=== PATIENT | female | born 1935 | race Caucasian/White ===

== ENCOUNTER 2022-05-26 01:43 | Outpatient (CLI) | payer MEDICARE, SELFPAY ==
--- NOTE | 2022-05-26 | DI.MRI_ITS ---
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 TECHNIQUE: Multiplanar multisequence MRI of the brain was performed. . COMPARISON: No exams were available for comparison FINDINGS: VENTRICLES AND EXTRA AXIAL SPACES: Normal in size and morphology for the patient's age. HEMORRHAGE: No evidence of acute or old hemorrhage. CEREBRAL PARENCHYMA: No focus of restricted diffusion to suggest acute infarct. No space-occupying le kain identified. There is no evidence of old infarct. There are scattered small foci of high signal in the white matter consistent with sequela of chronic microvascular ischemia, not unusual for the p atient's age. There is ecgh-ig-tqaxriyu atrophy, also consistent with the patient's age. There is m ild ventricular asymmetry which is within normal limits of variation. MIDLINE SHIFT: None. BRAINSTEM/CEREBELLUM: Normal. VISUALIZED PARANASAL SINUSES/MASTOIDS: Clear. OTHER FINDINGS: Orbits are unremarkable. IMPRESSION: Atrophy and white matter changes of small vessel disease, not unusual for the patient's age.. No micah dence of mass, acute or old infarct. DATA REPOSITORY:
== END 2022-05-26 02:03 ==
PROVIDERS: Visit Provider Family Medicine
DX: R90.82 White matter disease, unspecified (principal); F03.90 Unspecified dementia, unspecified severity, without behavioral disturbance, psychotic disturbance, mood disturbance, and anxiety
CPT/HCPCS: 70551

== ENCOUNTER → 2022-07-01 12:57 | Outpatient (BNVA) | payer MEDICARE, SELFPAY | PROVIDERS: PCP Nurse Practitioner Family; Referring Provider Nurse Practitioner Family; Visit Provider Nurse Practitioner Adult Health | DX: R41.89 Other symptoms and signs involving cognitive functions and awareness (principal); E03.9 Hypothyroidism, unspecified | CPT/HCPCS: 99204 ==

== ENCOUNTER 2022-07-07 01:43 | Outpatient (CLI) | payer MEDICARE, SELFPAY ==
[2022-07-07 13:32] LABS: TSH 1.04 uIU/mL (0.36-3.74); Vitamin B12 289 pg/mL (193-986)
== END 2022-07-07 01:44 | disposition home or self-care (01) ==
LOC: LBO 01:43
PROVIDERS: PCP Nurse Practitioner Family; Visit Provider Nurse Practitioner Adult Health
DX: E03.9 Hypothyroidism, unspecified (principal); R41.9 Unspecified symptoms and signs involving cognitive functions and awareness; G62.9 Polyneuropathy, unspecified
CPT/HCPCS: 36415; 82607; 84443

== ENCOUNTER → 2022-08-18 09:36 | Outpatient (BNVA) | payer MEDICARE, SELFPAY | PROVIDERS: PCP Nurse Practitioner Family; Referring Provider Nurse Practitioner Family; Visit Provider Nurse Practitioner Adult Health | DX: F02.811 Dementia in other diseases classified elsewhere, unspecified severity, with agitation (principal); G30.9 Alzheimer's disease, unspecified | CPT/HCPCS: 99213; 99214 ==